=== PATIENT | male | born 1965 | race Caucasian/White ===

== ENCOUNTER 2025-05-09 08:50 | Emergency (ER) | payer MEDICAID ==
[~2025-05-09] VITALS: Ht 180.3 cm; Wt 77.1 kg
[2025-05-09] MEDS ORDERED: NAPROXEN 500 MG TABLET ONE (10:37)
[2025-05-09] MEDS: NAPROXEN 500 MG TABLET PO ONE (10:40)
[2025-05-09] MEDS ORDERED: NAPR500T6 PO (11:23)
[2025-05-09 11:37] VITALS: BP 135/86; TEMP 98.5; O2SAT 98
== END 2025-05-09 11:38 | disposition home or self-care (01) ==
LOC: ER 08:50
DX: M79.671 Pain in right foot (principal); M79.672 Pain in left foot; F17.210 Nicotine dependence, cigarettes, uncomplicated; F20.9 Schizophrenia, unspecified; F41.9 Anxiety disorder, unspecified; F32.A Depression, unspecified; Z59.00 Homelessness unspecified
CPT/HCPCS: A4606; A4663